=== PATIENT | female | born 1970 | race Caucasian/White ===

== ENCOUNTER 2020-11-07 14:37 | Emergency (ER) | payer MEDICARE, MEDICAID ==
[~2020-11-07] VITALS: Ht 170.2 cm; Wt 61.4 kg
[2020-11-07 14:49] VITALS: TEMP 98
[2020-11-07] MEDS ORDERED: CORDARONE200 MG/TAB PO (15:03)
[2020-11-07] MEDS ORDERED: LASIX 80MG TABL80 MG PO (15:25)
[2020-11-07] MEDS ORDERED: ONE-A-DAY ESSE1 EACH PO (15:26)
[2020-11-07] MEDS ORDERED: NORCO 325 MG-101 TAB PO (15:26)
[2020-11-07] MEDS ORDERED: LYRICA225 MG PO (15:27)
[2020-11-07] MEDS ORDERED: COUMADIN 6MG6 MG/TAB PO (15:28)
--- NOTE | 2020-11-07 16:37 | NUR ---
[employer] Professional received consult in the ED for patient who is new to the area and is interested in additional in home services. Per ED Physician, patient has [facility] but would like some additional help with meal prep and cleaning. ANUPAM contacted patient by phone as she is currently a PUI. Patient lives in [place] with her daughter, Lara (ph#[phone]) and recently moved from the [facility]. Patient states she is set up with Dr. Wynn for primary care and has [employer]. Patient does not use any DME and reports she occasionally needs help with ADLS, which Lara provides. SW reviewed [facility] Resource Guide with patient over the phone and discussed Meals on Wheels. Patient is not interested at this time and states she loves to cook, but could use some help with cleaning. SW reviewed private duty agencies with patient and explained these would be an out of pocket expense. Patient states she recently was approved for Medicaid and is working with Maggy, Tobacco Packer at the [facility] to work on getting more in home supports. Patient states she plans to return home with her daughter, Lara today. Patient has no other questions at this time. ANUPAM contacted Demarcus at [facility] and confirmed that patient has PT/OT/Nursing. ANUPAM also contacted Maggy at the [facility] and left a detailed message to follow up on possible waiver services for patient. ANUPAM collaborated the above information to ED Physician.
[2020-11-07 17:03] VITALS: BP 131/82; PULSE 62
[2020-11-07] MEDS ORDERED: ZOFRAN ODT4 MG PO (17:06)
[2020-11-07] MEDS ORDERED: CEPHALEXIN500 M1 PO (17:06)
== END 2020-11-07 17:11 | disposition home or self-care (01) ==
LOC: COL.ER 14:37
DX: S40.021A Contusion of right upper arm, initial encounter (principal); Z20.822 Contact with and (suspected) exposure to COVID-19; Z99.2 Dependence on renal dialysis; Z88.1 Allergy status to other antibiotic agents; Z88.6 Allergy status to analgesic agent; Z88.2 Allergy status to sulfonamides; Z87.891 Personal history of nicotine dependence; Z79.01 Long term (current) use of anticoagulants; X58.XXXA Exposure to other specified factors, initial encounter

== ENCOUNTER 2020-11-13 13:26 | Emergency (ER) | payer MEDICARE, MEDICAID ==
[~2020-11-13] VITALS: Ht 170.2 cm; Wt 61.4 kg
[~2020-11-13 13:26] MED LIST: CEPHALEXIN500 M1 PO; CORDARONE200 MG/TAB PO; COUMADIN 6MG6 MG/TAB PO; LASIX 80MG TABL80 MG PO; LYRICA225 MG PO; NORCO 325 MG-101 TAB PO; ONE-A-DAY ESSE1 EACH PO; ZOFRAN ODT4 MG PO
[2020-11-13 13:30] VITALS: BP 100/67; TEMP 97.7
[2020-11-13 14:15] LABS: BASO % 0.4 % (0.0-2.0); EOS # 0.1 (0.0-0.7); EOS % 1.1 % (0-4.0); GRAN # 6.1 (1.4-6.5); GRAN % 72.3 % (42.2-75.2); HEMATOCRIT 37.7 % (37.0-47.0); HEMOGLOBIN 12.2 g/dl (12.5-16.0); LYMPH # 1.5 (1.2-3.4); LYMPH % 17.2 % (20.0-51.0); MEAN CELL VOLUME 89 fl (80.0-100.0); MEAN CORPUSCULAR HEMOGLOBIN 29 pg (27.0-31.0); MEAN CORPUSCULAR HGB CONC 32 g/dl (33.0-37.0); MEAN PLATELET VOLUME 9.4 fl (7.4-10.4); MONO # 0.7 (0.1-0.6); MONO % 8.5 % (1.7-9.3); PLATELET COUNT 204 K/mm3 (130-400); RED BLOOD COUNT 4.23 M/mm3 (4.10-5.30); REDCELL DISTRIBUTION WIDTH-CV 17.1 % (11.5-14.5)
[2020-11-13 14:21] LABS: INR 1.1 (0.8-3.0); PROTHROMBIN TIME 12.1 SECONDS (9.7-12.8)
[2020-11-13 14:26] LABS: ALBUMIN 3.9 gm/dL (3.5-5.0); BILIRUBIN,TOTAL 0.7 mg/dL (0.0-1.0); CREATININE, serum 5.3 (0.52-1.25); POTASSIUM 4.8 mmol/L (3.4-5.0); TOTAL PROTEIN 6.9 gm/dL (6.4-8.2)
[2020-11-13 14:38] LABS: TROPONIN-I 0.031 ng/mL (0.000-0.035)
[2020-11-13 15:55] VITALS: PULSE 75
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
== END 2020-11-13 15:51 | disposition home or self-care (01) ==
LOC: COL.ER 13:26
PROVIDERS: Emergency Medicine
DX: R07.89 Other chest pain (principal); N18.6 End stage renal disease; R06.02 Shortness of breath; M79.7 Fibromyalgia; F41.9 Anxiety disorder, unspecified; F17.200 Nicotine dependence, unspecified, uncomplicated; Z99.2 Dependence on renal dialysis; Z88.1 Allergy status to other antibiotic agents; Z88.6 Allergy status to analgesic agent; Z79.01 Long term (current) use of anticoagulants